=== PATIENT | female | born 1950 | race Caucasian/White ===

== ENCOUNTER → 2019-03-13 | Outpatient (CLI) | payer OTHER, BC ==
[~2019-03-13] VITALS: Ht 154.9 cm; Wt 61.2 kg
[~2019-03-13] MED LIST: CALCIUM 500 +1 EAC5 PO; DULERA 100 MCG/13 GM INH; FLUTICASONE PRO16 GM NASAL; LIPITOR10 MG PO; LUTEIN10 MG PO; PROAIR HFA8.5 GM INH; SINGULAIR 10 MG10 M1 PO; VITAMIN A10000 UNI3 PO; VITAMIN B COMP1 EACH PO; ZINC50 M1 PO
[2019-03-13 10:55] LABS: HEMATOCRIT 39.2 % (37.0-47.0); HEMOGLOBIN 13.3 gm/dL (12.0-15.0); MCH 30.4 pg (26.0-34.0); MCHC 33.9 g/dL (28.0-37.0); MCV 89.8 fL (80.0-100.0); RBC 4.36 mil/uL (4.20-5.00); RDW 13.5 % (10.5-14.5); WBC 5.3 thou/uL (4.0-11.0)
[2019-03-13 11:09] LABS: INR 1.2; PROTIME 12.1 Seconds (9.3-11.4)
--- NOTE | 2019-03-14 16:06 | PATH ---
[facility] [place] [address] [address] PATHOLOGY RPT PROCEDURE Name: KATTY CHISHOLM Room #: REG URIAH Oleary#: [id number] ������������������ Admission: 03/13/19 ������������������ Date of : 46 Discharge: Report #: [id number] Path Case #: [id number] [facility] Accession Number: [id number] . 01 Material submitted: . PART A: cecum - POLYP AT CECUM PART B: hepatic flexure - POLYP AT HEPATIC FLEXURE PART C: colon - POLYP AT 20CM . 01 Clinical history: . Pre-OP DX: Hx polyps Post-OP DX: Colon polyps . 02 Diagnosis: A. Polyp, at cecum, endoscopic biopsy: - Hyperplastic polyp. - Negative for dysplasia. . B. Polyp, at hepatic flexure, endoscopic biopsy: - Tubular adenoma. - Negative for high-grade dysplasia. . C. Polyp, at 20 cm, endoscopic biopsy: - Hyperplastic polyp. - Negative for dysplasia. (IUV:pit 03/14/2019) QTP/03/14/2019 . 02 Electronically signed: . Candida Loza MD, Pathologist NPI- [id number] . 01 Gross description: . A. Received in formalin labeled "Katty Chisholm, polyp at cecum," are 4 segments of simental soft tissue measuring 1.3 x 1.2 x 0.3 cm in aggregate dimensions and ranging from 0.4 to 0.8 cm in maximum dimension. The specimen is submitted entirely in cassette A1. . B. Received in formalin labeled "Katty Chisholm, polyp at hepatic flexure," are 2 segments of simental soft tissue measuring 1.1 x 0.5 x 0.3 cm in aggregate dimensions and ranging from 0.5 to 0.6 cm in maximum dimension. The specimen is submitted entirely in cassette B1. . C. Received in formalin labeled "Katty Chisholm, polyp at 20 cm," is a single segment of simental soft tissue measuring 0.3 cm in maximum dimension. The specimen is submitted entirely in cassette C1. (TSD; 03/13/2019) [address] [address] PATHOLOGY RPT PROCEDURE Name: KATTY CHISHOLM ANN Room #: REG URIAH Ramos.#: [id number] ������������������ Admission: 03/13/19 ������������������ Date of : 46 Discharge: Report #: [id number] Path Case #: [id number] TOB/TOB . 02 Pathologist provided ICD-10: K63.5, D12.3 . 02 CPT . 842401, 064269, 910234 Specimen Comment: A courtesy copy of this report has been sent to Specimen Comment: [phone], . Specimen Comment: Report sent to / DR BERUMEN Performed at: [address], [place] [id number] MD Warren Ag MD Phone: [phone] Performed at: [address] [id number] MD Candida Loza MD Phone: [phone]
--- NOTE | 2019-03-15 10:54 | P ---
[facility] [place] [address] [address] [place] [address] PROCEDURE REPORT Name: BRITTONRICA REN Room #: REG [facility].#: [id number] Admission: 03/13/19 ������������������ Attend Phys: Ascencion See MD Discharge: ������������������ Date of : 46 Report #: [id number] THIS REPORT FOR: //name// CC: Ascenicon Bagley MD BRIEF HISTORY: The patient is a 68-year-old woman with a history of colon polyps. Also, her father had colon cancer when he was in his mid 60s. PREOPERATIVE DIAGNOSIS: high risk screening colonoscopy due to personal history of colon polyps, family history of colon cancer. POSTOPERATIVE DIAGNOSES: 1. Multiple colon polyps. 2. Small internal hemorrhoids. MEDICATIONS: Deep sedation with propofol per anesthesia. SPECIMENS: 1. Diminutive cecal polyp. 2. A 5 mm sessile polyp, hepatic flexure. 3. Diminutive polyp at 20 cm. ESTIMATED BLOOD LOSS: 3 mL. PROCEDURE: Colonoscopy to cecum and terminal ileum with snare polypectomy and biopsy. FINDINGS: Prior to propofol sedation, procedure of colonoscopy discussed with the patient as well as potential risks and its complications. She indicates she understands and desires to proceed. DESCRIPTION OF PROCEDURE: With the right lateral decubitus position, digital examination was completed, which revealed no abnormalities. Subsequently, the Olympus video colonoscope was introduced in the rectum, advanced under direct vision to the cecum. Done with minimal difficulty. The cecum was identified by the ileocecal valve and the appendiceal orifice. I was able to visualize the distal segment of the terminal ileum, which was inspected and noted to be unremarkable. At that point, the scope was slowly withdrawn and careful circumferential views obtained including retroflexion of the scope in the ascending colon. Upon slow withdrawal of the scope, the prep was good. The mucosa was within normal limits, normal vascular pattern, normal light reflex. In the cecum, a diminutive polyp was seen and removed with multiple biopsies. Scope was further withdrawn and a 5 mm sessile polyp was seen in the hepatic flexure, removed by cold snare polypectomy. Upon further withdrawal of the scope, no additional abnormalities were noted until a distal sigmoid colon was [facility] [address] [place] [address] PROCEDURE REPORT Name: RICA JARQUIN Room #: REG [facility] M.Tod.#: [id number] Admission: 03/13/19 ������������������ Attend Phys: Ascencion See MD Discharge: ������������������ Date of : 46 Report #: [id number] reached and at 20 cm, a diminutive polyp was seen and removed with biopsy forceps. Scope was further withdrawn. No additional abnormalities were seen. Upon retroflexion in the distal rectum, small hemorrhoids were seen. The scope was withdrawn and the patient tolerated the procedure well. CONDITION OF THE PATIENT UPON DISCHARGE: Following procedure, the patient drowsy, aroused, conversant and will be discharged home when fully ambulatory. INSTRUCTIONS TO THE PATIENT AND FAMILY AT THE TIME OF DISCHARGE: We will follow up on the pathology report. If all 3 polyps are adenomas, she should return in 3 years, otherwise, she will return in 5 years for followup colon exam. Last colonoscopy was 5 years ago. Withdrawal time from the cecum was 14 minutes and 16 seconds. ��������������������������������������������� <ELECTRONICALLY SIGNED> ���������������������������������������� By: Ascencion See MD ��������������������������������������������� 03/15/19 [id number] Ascencion See MD /nt
== END | disposition home or self-care (01) ==
LOC: GI 08:26
PROVIDERS: Anesthesiology
DX: Z12.11 Encounter for screening for malignant neoplasm of colon (principal); Z86.010 Personal history of colon polyps; Z80.0 Family history of malignant neoplasm of digestive organs; D12.3 Benign neoplasm of transverse colon; K63.5 Polyp of colon; J45.909 Unspecified asthma, uncomplicated; E78.5 Hyperlipidemia, unspecified; Z90.710 Acquired absence of both cervix and uterus; Z98.890 Other specified postprocedural states; Z79.899 Other long term (current) drug therapy; Z90.49 Acquired absence of other specified parts of digestive tract; Z88.6 Allergy status to analgesic agent
CPT/HCPCS: 62110; 62900

== ENCOUNTER → 2019-12-25 | Outpatient (CLI) | payer OTHER, BC | LOC: MRI 12-24 09:04 | DX: S83.282A Other tear of lateral meniscus, current injury, left knee, initial encounter (principal); M71.22 Synovial cyst of popliteal space [Baker], left knee; X58.XXXA Exposure to other specified factors, initial encounter; Y93.89 Activity, other specified; Y92.89 Other specified places as the place of occurrence of the external cause; Y99.8 Other external cause status ==

== ENCOUNTER → 2020-06-10 | Outpatient (CLI) | payer OTHER, BC | LOC: LAB 08:53 | PROVIDERS: ATTEND Neuromusculoskeletal Medicine & OMM | DX: Z01.812 Encounter for preprocedural laboratory examination (principal); Z11.59 Encounter for screening for other viral diseases ==